=== PATIENT | male | born 1945 | race Caucasian/White ===

== ENCOUNTER 2017-05-13 09:25 | Emergency (ER) | payer MEDICARE ==
[2017-05-13] MEDS ORDERED: HYDROCODONE/APAP 5/325MG TABLET PO ONE (09:40)
[2017-05-13] MEDS ORDERED: DIAZEPAM 5 MG TABLET PO ONE (09:40)
--- NOTE | 2017-05-13 09:46 | Emergency Department Record ---
History of Present Illness - General Chief Complaint: Back Pain/Injury Stated Complaint: BACK PAIN Time Seen by Provider: 05/13/17 09:29 Source: Patient Mode of Arrival: Ambulatory Limitations: No limitations - History of Present Illness Initial Comments: 72 yo male presents to ED with a CC of right sided low back pain that began approximately 4 days ago. Patient reports injury to the back 20-25 years ago, with intermittent symptoms since that time. Patient denies specific recent injury, fevers, chills, or recent illness. Patient reports pain with movement, denies numbness, tingling, or urinary retention symptoms. MD Complaint: Back pain Onset/Timin -: Days(s) Similar Symptoms Previously: Yes Place: Home Radiation: None Severity: Mild Severity scale (1-10): 3 Quality: Aching, Sharp Consistency: Constant Improves With: None Worsens With: Movement, Sitting upright Context: Unknown Associated Symptoms: Denies other symptoms - Related Data Home Medications Medication Instructions Recorded Confirmed Last Taken Aspirin [Adult Low Dose Aspirin EC] 81 mg PO DAILY 05/13/17 05/13/17 Unknown Cyclobenzaprine HCl 10 mg PO TID PRN 05/13/17 05/13/17 Unknown Lisinopril 20 mg PO DAILY 05/13/17 05/13/17 05/13/17 Metoprolol Tartrate [Lopressor] 25 mg PO Q12H 05/13/17 05/13/17 Unknown Previous Rx's Medication Instructions Recorded Diazepam [Valium] 5 mg PO Q8H PRN #15 tab 05/13/17 Naproxen [Naprosyn] 500 mg PO BID #30 tablet 05/13/17 Allergies Allergy/AdvReac Type Severity Reaction Status Date / Time No Known Drug Allergies Allergy Verified 05/13/17 09:32 Travel Screening - Travel/Exposure Within Last 30 Days Have you traveled within the last 30 days?: No Review of Systems Constitutional: Denies: Chills, Fever, Malaise, Night sweats Eyes: Denies: Eye discharge, Eye pain ENT: Denies: Congestion, Ear pain, Epistaxis Respiratory: Denies: Cough, Dyspnea Cardiovascular: Denies: Chest pain, Dyspnea on exertion Endocrine: Denies: Fatigue, Heat or cold intolerance Gastrointestinal: Denies: Abdominal pain, Nausea, Vomiting Genitourinary: Denies: Incontinence, Retention Musculoskeletal: Reports: Back pain. Denies: Arthralgia, Gout, Joint swelling Skin: Denies: Bruising, Change in color Neurological: Denies: Abnormal gait, Confusion, Headache, Seizure Psychiatric: Denies: Anxiety Hematological/Lymphatic: Denies: Anemia, Blood Clots Past Medical History - SOCIAL HISTORY Smoking Status: Never smoker Alcohol Use: None Drug Use: None - RESPIRATORY Hx Respiratory Disorders: No - CARDIOVASCULAR Hx Cardio Disorders: Yes Hx Hypertension: Yes - NEURO Hx Neuro Disorders: No - GI Hx GI Disorders: No - Hx Genitourinary Disorders: No - ENDOCRINE Hx Endocrine Disorders: No - MUSCULOSKELETAL Hx Musculoskeletal Disorders: Yes - PSYCH Hx Psych Problems: No - HEMATOLOGY/ONCOLOGY Hx Hematology/Oncology Disorders: No Family Medical History Any Significant Family History?: No Physical Exam - General General Appearance: Alert, Oriented x3, Cooperative, Mild distress Limitations: No limitations - Head Head exam: Atraumatic, Normocephalic, Normal inspection Head exam detail: negative: Abrasion, Contusion, Henry's sign, General tenderness, Hematoma, Laceration - Eye Eye exam: Normal appearance. negative: Conjunctival injection, Periorbital swelling, Periorbital tenderness, Scleral icterus - ENT Ear exam: negative: Auricular hematoma, Auricular trauma Nasal Exam: negative: Active bleeding, Discharge, Dried blood Mouth exam: negative: Drooling, Laceration, Muffled voice, Tongue elevation - Neck Neck exam: Normal inspection. negative: Meningismus, Tenderness - Respiratory Respiratory exam: Normal lung sounds bilaterally. negative: Rales, Respiratory distress, Rhonchi, Stridor - Cardiovascular Cardiovascular Exam: Regular rate, Normal rhythm, Normal heart sounds - GI/Abdominal GI/Abdominal exam: Soft. negative: Rebound, Rigid, Tenderness - Rectal Rectal exam: Deferred - exam: Deferred - Extremities Extremities exam: Normal inspection. negative: Calf tenderness, Pedal edema, Tenderness - Back Back exam: Reports: Paraspinal tenderness (right paravertebral tenderness on palpation). Denies: CVA tenderness (R), CVA tenderness (L), Rash noted - Neurological Neurological exam: Alert, Normal gait, Oriented X3 - Psychiatric Psychiatric exam: Normal affect, Normal mood - Skin Skin exam: Normal color. negative: Abrasion Type of lesion: negative: abrasion Course Vital Signs 05/13/17 09:28 Temperature 97.5 F L Pulse Rate 61 Respiratory 20 Rate Blood Pressure 135/85 Pulse Ox 98 - Reevaluation(s) Reevaluation #1: 05/13/17 10:29 Lumbar Spine: Multi-level degenerative changes, nothing acute. Patient was updated on all results, reports improvement in his back pain symptoms. Patient reports that his pain symptoms are improving as well, and appears stable for discharge at this time. Disposition Disposition: Discharge Clinical Impression: Back pain Qualifiers: Back pain location: low back pain Chronicity: acute Back pain laterality: right Sciatica presence: without sciatica Qualified Code(s): M54.5 - Low back pain Disposition: Home, Self-Care Condition: (2) Stable Instructions: Low Back Strain (ED) Additional Instructions: Return to ED if your symptoms worsen or if you have any concerns. Valium and Naprosyn as directed. Follow-up with your family doctor in 3-5 days as directed. Prescriptions: Diazepam [Valium] 5 mg PO Q8H PRN #15 tab PRN Reason: Pain - Moderate (5-7) Naproxen [Naprosyn] 500 mg PO BID #30 tablet Forms: Patient Portal Access Time of Disposition: 10:34
--- NOTE | 2017-05-13 15:45 | RADIOLOGY REPORT ---
EXAM: LUMBAR SPINE / AP LAT HISTORY: BACK PAIN FOR FOUR DAYS. TECHNIQUE: AP and lateral views of the lumbar spine are obtained as well as a spot lateral view of the lumbosacral junction. COMPARISON: None. ENCOUNTER: Initial. FINDINGS: There are five [id number] lumbar-type vertebrae. There is normal bone mineralization. The vertebral bodies are normal in alignment and height. No acute fracture nor destructive bone lesion is seen. Multilevel degenerative disc/degenerative endplate changes are identified, mild in degree, most pronounced at the L5/S1 level. Facet degenerative changes are noted at the lower lumbar levels, mild to moderate in degree. IMPRESSION: NO ACUTE OSSEOUS OR LIGAMENTOUS ABNORMALITY IDENTIFIED. MULTILEVEL DEGENERATIVE CHANGES. JOB NUMBER: [id number] MTDD
== END 2017-05-13 10:43 | disposition home or self-care (01) ==
LOC: ER 09:25
DX: M54.5 Low back pain (principal)
CPT/HCPCS: 99283 ×2; 72100; J3490

== ENCOUNTER 2017-11-27 10:47 | Day surgery (SDC) | payer MEDICARE ==
[~2017-11-27 10:47] MED LIST: ACETAMINOPHEN 1,000 MG/100 ML BTL IV ONE; FAMOTIDINE 20MG TABLET PO ONE; MECLIZINE 25 MG TABLET PO ONE; METOCLOPRAMIDE 10 MG TABLET PO ONE
[2017-11-27] MEDS ORDERED: KETOROLAC 30 MG/ML VIAL IVP ONE (10:48)
[2017-11-27] MEDS ORDERED: LIDOCAINE 2% MDV (20MG/ML) 20ML VIAL IV ONE (10:48)
[2017-11-27] MEDS ORDERED: BUPIVACAINE 0.75% W/EPI MPF 30ML VIAL IVP ONE (10:48)
[2017-11-27] MEDS ORDERED: MIDAZOLAM HCL 2MG/2ML VIAL IV ONE (10:48)
[2017-11-27] MEDS ORDERED: SEVOFLURANE 250 ML INH ONE (10:48)
[2017-11-27] MEDS ORDERED: FENTANYL PF 100MCG/2ML VIAL IV ONE (10:48)
[2017-11-27] MEDS ORDERED: PROPOFOL 10 MG/ML VIAL IV ONE (10:48)
--- NOTE | 2017-11-28 12:30 | Operative Note ---
DATE OF SURGERY: 11/27/2017 Surgeon: Amandeep Dc DO PREOPERATIVE DIAGNOSIS: Torn medial meniscus of the right knee. POSTOPERATIVE DIAGNOSES: 1. Torn medial meniscus, right knee. 2. Chondromalacia of the medial femoral condyle and patella, right knee. OPERATION: 1. Arthroscopic partial medial meniscectomy, right knee. 2. Arthroscopic chondroplasty medial femoral condyle and patella, right knee. PROCEDURE: This 72-year-old male was taken to the operating room and placed in the supine position on the operating room table. A general anesthetic was administered. The right lower extremity was elevated. It was exsanguinated and the tourniquet inflated to 300 mmHg. Arthroscopic knee esparza applied. Right knee prepped with Hibiclens and draped in the usual sterile fashion. An inferolateral portal was established for the 4 mm arthroscope. Initial evaluation of the joint demonstrated normal appearance of the suprapatellar pouch other than the patient had some synovitis. The patella demonstrated grade 2 chondromalacia with some articular cartilage loss on the patella. The trochlea, however, appeared normal. Some moderate fraying of the inferior pole of the patella was noted and chondroplasty was performed there through an inferomedial portal to stabilize the articular cartilage there. The medial and lateral gutters were examined and found to be normal. The medial compartment was entered and the entire weightbearing surface of the medial femoral condyle demonstrated grade 2 chondromalacia with some delaminating articular cartilage lesions seen there. A chondroplasty was performed to restore stability to the articular cartilage. The patient also demonstrated a complex tear of the posterior horn of the medial meniscus with the apex of the tear being at approximately the 1:30 position and utilizing the basket forceps and rotating shaver, we resected unstable fragments of this meniscus. There were flaps that were tucked underneath the meniscus as well and those were retrieved and resected. Once this had been accomplished, the meniscus was re-probed and confirmed to be stable. The anterior horn appeared to be normal. The intracondylar notch examined and found to be normal. Lateral compartment entered and the articular cartilage and meniscus and lateral compartment did not demonstrate any abnormality. The joint was then copiously irrigated and suctioned. The instruments were removed. The portals infiltrated with 0.25% Marcaine with epinephrine. Sterile dressings applied. Tourniquet and knee esparza released and the patient taken to the recovery room in satisfactory condition. GROSS PATHOLOGY: This patient demonstrated a complex tear of the posterior horn of the medial meniscus as described. In addition, chondromalacia of the patella and medial femoral condyle were present as described. Grade 3 changes noted on the patella, grade 2 on the medial femoral condyle. There was some synovitis of the knee but synovectomy was not performed. KARLA
== END 2017-11-27 13:55 | disposition home or self-care (01) ==
LOC: SUR 10:47
PROVIDERS: ATTEND Orthopaedic Surgery
DX: M23.221 Derangement of posterior horn of medial meniscus due to old tear or injury, right knee (principal); E78.00 Pure hypercholesterolemia, unspecified; M94.261 Chondromalacia, right knee; I10 Essential (primary) hypertension
CPT/HCPCS: 29881; 01400; J1885; J3010; J3490